=== PATIENT | male | born 1955 | race Caucasian/White ===

== ENCOUNTER 2017-07-24 07:30 | Inpatient (IN) | payer OTHER ==
--- NOTE | 2017-07-24 06:55 | PDHPUP ---
History & Physical Update H&P update statement: This history and physical update is based on an assessment of the patient which was completed after admission or registration (within 24 hours), but prior to the surgery/procedure. H&P update: H&P reviewed & patient examined, no change in patient's condition since H&P completed
[2017-07-24] MEDS ORDERED: ACETAMINOPHEN 500 MG TAB PO ONE (11:41)
[2017-07-24] MEDS ORDERED: ceFAZolin 2 GM/SWFI 2 GM/20 ML SYR IVP ONE (11:41)
[2017-07-24] MEDS ORDERED: GABAPENTIN 300 MG CAP PO ONE (11:41)
[2017-07-24] MEDS ORDERED: LR 1,000 ML IV ONE (11:42)
[2017-07-24] MEDS ORDERED: BUPIVACAINE 0.25% 30 ML SDV ONE (12:15)
[2017-07-24] MEDS ORDERED: THROMBIN (BOVINE) 20,000 UNIT VIAL TP ONE (12:15)
[2017-07-24] MEDS ORDERED: CHLORHEXIDINE GLUC HIBICLENS 118 ML BTL TP ONE (12:15)
[2017-07-24] MEDS ORDERED: BACITRACIN 50,000 UNITS/10 ML SYR IRR ONE (12:15)
[2017-07-24] MEDS ORDERED: EPINEPHrine 1 MG/ML INJ ONE (12:35)
[2017-07-24] MEDS ORDERED: oxyCODONE IR 5 MG TAB PO PRN (12:37)
[2017-07-24] MEDS ORDERED: MIDAZOLAM 2 MG/2 ML VIAL IVP ONE (12:37)
[2017-07-24] MEDS ORDERED: HYDROmorphONE/DILAUDID 2 MG/ML INJ IVP PRN (12:37)
[2017-07-24] MEDS ORDERED: DEXAMETHASONE 4 MG/ML VIAL IVP PRN (12:37)
[2017-07-24] MEDS ORDERED: ONDANSETRON 4 MG/2 ML VIAL IVP PRN (12:37)
[2017-07-24] MEDS ORDERED: NALOXONE HCL 0.4 MG/ML INJ IVP PRN ×2 (12:37→12:45)
[2017-07-24] MEDS ORDERED: HYDROCODONE/APAP 5/325 TAB PO PRN (12:37)
--- NOTE | 2017-07-24 12:39 | PDANEPAE ---
ANE History of Present Illness TLIF ANE Past Medical History - Cardiovascular History Hx Hypertension: No Hx Arrhythmias: No Hx Chest Pain: No Hx Coronary Artery / Peripheral Vascular Disease: No Hx CHF / Valvular Disease: No Hx Palpitations: No - Pulmonary History Hx COPD: No Hx Asthma/Reactive Airway Disease: No Hx Recent Upper Respiratory Infection: No Hx Oxygen in Use at Home: No Hx Sleep Apnea: Yes Sleep Apnea Screening Result - Last Documented: Positive - Neurologic History Hx Cerebrovascular Accident: No Hx Seizures: No Hx Dementia: No - Endocrine History Hx Diabetes: No - Renal History Hx Renal Disorders: Yes Renal History Comment: BPH - Liver History Hx Hepatic Disorders: No - Neurological & Psychiatric Hx Hx Neurological and Psychiatric Disorders: No - Cancer History Hx Cancer: No - Congenital Disorder History Hx Congenital Disorders: No - GI History Hx Gastrointestinal Disorders: Yes Gastrointestinal History Comment: GERD - Chronic Pain History Chronic Pain: Yes - Surgical History Prior Surgeries: sinus surgery 2010 ANE Review of Systems Review of Systems: - Exercise capacity METS (RN): 4 METS ANE Patient History - Allergies Allergies/Adverse Reactions: No Known Allergies Allergy (Verified 07/24/17 12:11) - Home Medications Home Medications: Alfuzosin HCl [Alfuzosin HCl ER] 10 mg PO HS 06/26/17 [Last Taken Unknown] Aspirin [Aspirin 81mg (*)] 81 mg PO DAILY 06/26/17 [Last Taken 07/14/17] Atorvastatin Calcium [Lipitor 20 mg (*)] 20 mg PO DAILY 06/26/17 [Last Taken Unknown] Cyclobenzaprine [Flexeril 10 MG (*)] 10 mg PO DAILY PRN 06/26/17 [Last Taken Unknown] Famotidine [Pepcid 20 MG (*)] 20 mg PO DAILY 06/26/17 [Last Taken Unknown] Herbals/Supplements -Info Only 1 ea PO DAILY 06/26/17 [Last Taken 07/14/17] Meloxicam 15 mg PO DAILY PRN 06/26/17 [Last Taken Unknown] Multivitamins [Multivitamin (*)] 1 each PO DAILY 06/26/17 [Last Taken 07/14/17] [place]-3 Fatty Acids [Fish Oil 1000 mg (*)] 1,000 mg PO DAILY 06/26/17 [Last Taken 07/14/17] - NPO status NPO Since - Liquids (Date): 04/04/18 NPO Since - Liquids (Time): 09:00 NPO Since - Solids (Date): 07/23/17 NPO Since - Solids (Time): 17:30 - Smoking Hx Smoking Status: Never smoked - Family Anes Hx Family Hx Anesthesia Complications: none ANE Labs/Vital Signs - Vital Signs Blood Pressure: 119/76 Heart Rate: 76 Respiratory Rate: 16 O2 Sat (%): 96 Height: 175.26 cm Weight: 68.039 kg ANE Physical Exam - Airway Neck exam: FROM Mallampati Score: Class 2 Mouth exam: normal dental/mouth exam - Pulmonary Pulmonary: clear to auscultation - Cardiovascular Cardiovascular: regular rate and rhythym - ASA Status ASA Status: I ANE Anesthesia Plan Anesthesia Plan: general endotracheal anesthesia Total IV Anesthesia: Yes
[2017-07-24] MEDS ORDERED: MIDAZOLAM 2 MG/2 ML VIAL ONE (12:41)
[2017-07-24] MEDS ORDERED: PROPOFOL/EMULSION 500 MG/50 ML BOTTLE IV ONE ×3 (12:44)
[2017-07-24] MEDS ORDERED: NS W/ 20 KCl/L 1,000 ML IV SCH (12:45)
[2017-07-24] MEDS ORDERED: ONDANSETRON DISINTEGRATING 4 MG TAB PO PRN (12:45)
[2017-07-24] MEDS ORDERED: POLYETHYLENE GLYCOL 3350 17 GM PKT PO PRN (12:45)
[2017-07-24] MEDS ORDERED: diphenhydrAMINE 25 MG CAP PO PRN (12:45)
[2017-07-24] MEDS ORDERED: BISACODYL 10 MG SUPP PR PRN (12:45)
[2017-07-24] MEDS ORDERED: morphINE PCA 30 MG/30 ML PCA IV PRN (12:45)
[2017-07-24] MEDS ORDERED: LACTULOSE 20 GM/30 ML UDCUP PO PRN (12:45)
[2017-07-24] MEDS ORDERED: REMIFENTANIL HCL 1 MG VIAL ONE ×3 (12:46)
[2017-07-24] MEDS ORDERED: DEXAMETHASONE 4 MG/ML VIAL ONE (12:54)
[2017-07-24] MEDS ORDERED: SUCCINYLCHOLINE CHLORIDE 200 MG/10 ML SYR IVP ONE (12:54)
[2017-07-24] MEDS ORDERED: ONDANSETRON 4 MG/2 ML VIAL ONE (12:54)
[2017-07-24] MEDS ORDERED: RANITIDINE 50 MG/2 ML VIAL ONE (12:54)
[2017-07-24] MEDS ORDERED: VASOPRESSIN 20 UNIT/ML VIAL ONE (13:20)
--- NOTE | 2017-07-24 13:30 | PDMN ---
Medical Necessity Medical necessity: S820 lumbar fusion 3 days [facility] INPT only: L4/5 TLIF
[2017-07-24] MEDS ORDERED: ceFAZolin 2 GM/DEXTROSE 100 ML IV SCH (14:00)
[2017-07-24] MEDS ORDERED: HYDROmorphONE/DILAUDID 2 MG/ML INJ ONE (16:03)
[2017-07-24] MEDS ORDERED: PROPOFOL 200 MG/20 ML VIAL ONE (16:29)
--- NOTE | 2017-07-24 17:12 | SOAPPROG ---
SOAP Progress Note Assessment/Plan: Post Op Visit: S: Awake and alert. NAD. Pt with expected lower back pain O: AFVSS/PERRLA/EOMI no droop CN 2-12 grossly intact +lt touch 5/5 BUE/BLE = CDI A/P: 62 yo male that is s/p TLIF at L4/5 -orders in place -call with any questions or concerns -pt understands and agrees -pt seen by Dr Mandujano as well 07/24/17 17:07 Objective: Vital Signs Temp Pulse Resp BP Pulse Ox 36.5 C 76 16 119/76 96 07/24/17 12:00 07/24/17 12:39 07/24/17 12:39 07/24/17 12:39 07/24/17 12:39 ICD10 Worksheet Patient Problems: Problems Problem Status Onset Arthrodesis status Acute Lumbar radicular pain Acute Lumbar stenosis Acute - ICD10 Problem Qualifiers (1) Lumbar stenosis (2) Lumbar radicular pain (3) Arthrodesis status
--- NOTE | 2017-07-24 17:14 | POSTANESTH ---
Post Anesthetic Evaluation Cardiovascular Status: Normal, Stable Respiratory Status: Similar to Pre-op Cond. Level of Consciousness/Mental Status: Mildly Sleepy, Arousable Pain Control: Adequate, Prn Tx Ordered Nausea/Vomiting Control: Adequate, Prn Tx Ordered
[2017-07-24] MEDS ORDERED: fentaNYL 100 MCG/2 ML INJ ONE (17:33)
[2017-07-24] MEDS: fentaNYL 100 MCG/2 ML INJ IVP PRN ×2 (17:36→17:44)
[2017-07-24] MEDS: ACETAMINOPHEN 500 MG TAB PO SCH ×2 (18:29→21:49)
--- NOTE | 2017-07-24 19:25 | GOP ---
[f rep st] OPERATIVE REPORT DATE OF OPERATION: 07/24/2017 SURGEON: Yazan Mandujano MD PROFESSIONAL [employer]LET[employer] COACH: Piyush Schwarz PA-C. PREOPERATIVE DIAGNOSIS: Lumbar spondylolisthesis L4-5, severe spinal stenosis L4-5, lumbar degenerative disk disease L4-5, multilevel lumbar spondylosis, left buttock pain and axial low back pain, left greater than right. POSTOPERATIVE DIAGNOSIS: Lumbar spondylolisthesis L4-5, severe spinal stenosis L4-5, lumbar degenerative disk disease L4-5, multilevel lumbar spondylosis, left buttock pain and axial low back pain, left greater than right. PROCEDURE PERFORMED: Posterolateral and intervertebral arthrodesis at L4-5 with bilateral decompressions in a left-sided approach to the L4-5 disk space ( [id number]); posterior nonsegmental instrumentation across a single interspace L4-5 ( [id number]); microscope; same-incision bone graft harvest; spinal stereotaxy; placement of biomechanical intervertebral device L4-5. FINDINGS: ESTIMATED BLOOD LOSS: 150 cc. INDICATIONS: The patient is a 62-year-old with terrible axial low back pain not responsive to conservative measures. MRI demonstrated multilevel lumbar spondylosis with degenerative changes throughout the lumbar spine. There was some right lateral recess stenosis at L5-S1. There was severe bilateral recess stenosis and spondylolisthesis and central stenosis at L4-5. There was disk degenerative disease and spondylosis and mild stenosis at L3-4, and there is a small foraminal disk bulge in the left L3-4 foramen. There are disk degenerative changes at L2-3, spondylosis and mild stenosis at that level. I suggested a single-level surgery. He understood that he had other problems in the lumbar spine that may eventually require surgery. He knew there was a chance of pseudoarthrosis and nonunion as well as the risk of continued symptoms. He knew there was risk of adjacent segment disease and the possible need for additional fusion surgery in the future. He wanted to proceed despite these risks. He knew there was risk of spinal fluid leak and nerve injury. DESCRIPTION OF PROCEDURE: The patient was taken to the operating room, placed in supine position. General anesthesia was begun. He was flipped prone onto the Frantz table. Care was taken to pad all points of contact. His back was sterilely prepped and draped in the usual fashion. A localizing x-ray was taken. We made a 4 cm incision above the L4-5 interspace. The subcutaneous tissue was dissected using Bovie cautery down through fascia, and a subperiosteal dissection was made down the lamina of L4-5. He had remarkably hypertrophic and enlarged L4-5 facet. When we dissected near them, there was pressurized synovium that came squirting out of his facet joint on his right side more than the left. We shot a localizing x-ray. We then denuded and removed the hypertrophic facets bilaterally at L4-5 and decorticated the transverse processes of L4-5 bilaterally. We then attached the Stealth reference frame to the spinous process of L4 and performed an O-arm spin. Using frameless Stealth stereotaxy, we placed pedicle screws bilaterally at L4 and L5. We used 35 mm screws at L5. We used 45 mm screws at L4. They all stimulated at 20 milliamperes or above. We performed an O-arm spin, and we looked at all of the screws. They were in excellent position. There was no violation of the L3-4 disk. We did 3D imaging on the screws, and there was no violation of the endplates at L3-4. The screws were fully contained within the pedicle. The tip of the right L5 screw was bicortical and breached ventral lateral portion of the L5 vertebral body only at its tip. These were all excellent screws with good bony purchase. We chose a 40 mm cielo and distracted between L4 and L5 and got partial reduction in the process of the spondylolisthesis at L4-5. We then removed all the soft tissue of the bone at L4-5 and harvested the inferior L4 spinous process for autologous grafting purposes. We drilled bilateral laminectomies of L4 and harvested this bone for autologous grafting purposes. We then introduced the operating microscope and opened the ligamentum flavum and performed radical bilateral decompression and bilateral medial facetectomy, decompressing the bilateral recesses at L4-5. We then undercut the superior articular process of L5 on the right-hand side and removed much of this where it encroached upon the exiting L4 nerve root at that level. We then completely removed the left L4-5 facet joint, and there was significant encroachment of the superior articulating process of L5 on the left side into the exiting L4 nerve root. The L5 nerve root had already been decompressed. We were very happy with the quality of our decompression. We swept the left L5 nerve root medially, incised the L4-5 disk, removed the disk and cartilaginous endplate. We did this bilaterally. We then roughened the subchondral bone to create arthrodesis there, and then we packed bone autograft and 0.7 mg of BMP into the disk space. This was followed by the expandable 8 x 28 mm device which we inserted under fluoroscopic guidance and expanded it in a torque limited fashion. A final x-ray was taken. The device was in excellent position. There was lordosis of the segment. We then decorticated all the remaining bone posterolaterally. We released the L4 cap screw and allowed a slightly increased lordosis compared to where we started, and then we final tightened these according to company specification. We placed bone autograft and BMP posterolaterally bilaterally followed by a subfascial drain. We then closed the incision in multiple layers using Vicryl sutures. A running PDS was placed in the skin. Steri-Strips were applied. The patient was reversed from anesthesia, extubated, and transferred to the recovery room in stable condition. There were no complications. LOCATION: [facility] COMPLICATIONS: None. INSTRUMENTATION USED: [employer] Solera 4.75 system with an 8 x 28 mm Elevate cage. We used 1.4 mg of bone morphogenic protein. 0.7 mg were placed into the disk space and 0.7 mg were used posterolaterally. /[id number]/MODL MTDD
[2017-07-24] MEDS: METHOCARBAMOL 750 MG TAB PO PRN (19:31)
[2017-07-24] MEDS: oxyCODONE IR 5 MG TAB PO PRN (19:31)
[2017-07-24] MEDS ORDERED: NON-FORMULARY NEW DRUG (Alfuzosin Hcl [Alfuzosin Hcl Er] 10 MG) PO SCH (21:00)
[2017-07-24] MEDS ORDERED: Alfuzosin Hcl [Alfuzosin Hcl Er] 10 MG PO SCH (21:00)
[2017-07-24] MEDS: ceFAZolin 2 GM/SWFI 2 GM/20 ML SYR IVP SCH (21:49)
[2017-07-24] MEDS: SENNOSIDES/DOCUSATE SODIUM TAB PO SCH (21:49)
[2017-07-24] MEDS: Alfuzosin Hcl [Alfuzosin Hcl Er] 10 MG PO SCH (21:50)
[2017-07-24] MEDS: morphINE SR 15 MG TAB PO SCH (21:50)
[2017-07-25] MEDS: oxyCODONE IR 5 MG TAB PO PRN ×5 (00:27→16:58)
[2017-07-25] MEDS: ACETAMINOPHEN 500 MG TAB PO SCH ×3 (05:34→20:12)
[2017-07-25] MEDS: ceFAZolin 2 GM/SWFI 2 GM/20 ML SYR IVP SCH (05:35)
--- NOTE | 2017-07-25 08:33 | NEUSURGPN ---
Assessment/Plan: A/P: 62 yo male that is s/p TLIF at L4/5 -PT/OT -Brace when OOB -Post op xrays pending -TEDs, SCDs, lovenox to begin 07/27 -Pain management -Dietrich is out -DC REESE drain today per Delbert -D/w Dr Mandujano -Call NS with any questions Subjective: Pt resting in bed, states pain is well managed Objective: AAOx3 NAD VSS MAEx4 Motor 5/5 BLE REESE drain productive +LT Urinary Catheter in Place: No Catheter Insertion Date: 07/24/17 - Physician Discussed Patient with : Delbert Neurosurgery Physical Exam - Vitals, I&O, Labs I and O 07/24/17 07/25/17 07/26/17 05:59 05:59 05:59 Intake Total 3250 Output Total 1270 1040 Balance 1979 -104 Weight 68.039 kg Intake: Oral (ml) 1300 IV Intake (ml) 1950 Output: Urine (ml) 400 1000 Catheter 400 1000 Estimated Blood Loss (ml) 400 REESE Drain Output (ml) 470 40 Back 470 40 Vital Signs Temp Pulse Resp BP Pulse Ox 37.2 C 74 14 103/60 93 07/25/17 08:00 07/25/17 08:00 07/25/17 08:00 07/25/17 08:00 07/25/17 08:00 ICD10 Worksheet Patient Problems: Problems Problem Status Onset Arthrodesis status Acute Lumbar radicular pain Acute Lumbar stenosis Acute
[2017-07-25] MEDS: METHOCARBAMOL 750 MG TAB PO PRN ×2 (08:58→16:34)
[2017-07-25] MEDS: morphINE SR 15 MG TAB PO SCH ×2 (08:58→20:13)
[2017-07-25] MEDS: SENNOSIDES/DOCUSATE SODIUM TAB PO SCH ×2 (08:58→20:13)
[2017-07-25] MEDS: FAMOTIDINE 20 MG TAB PO SCH (08:58)
[2017-07-25] MEDS: ATORVASTATIN CALCIUM 20 MG TAB PO SCH (09:04)
--- NOTE | 2017-07-25 15:58 | ASMTCMCOM ---
CM Note CM Note Notes: Pt s/p TLIF at L4/5. OT rec home, PT rec outpatient. Anticipate pt will d/c with support. CM available for changes/needs. Date Signed: 07/25/2017 03:57 PM Electronically Signed By:DONIS Banuelos
[2017-07-25] MEDS: Alfuzosin Hcl [Alfuzosin Hcl Er] 10 MG PO SCH (20:10)
[2017-07-25] MEDS: MAGNESIUM HYDROXIDE 30 ML UDCUP PO PRN (22:03)
[2017-07-26] MEDS: CYCLOBENZAPRINE 10 MG TAB PO PRN ×2 (00:38→10:56)
[2017-07-26] MEDS: oxyCODONE IR 5 MG TAB PO PRN (00:42)
[2017-07-26] MEDS: ACETAMINOPHEN 500 MG TAB PO SCH ×3 (05:31→21:08)
--- NOTE | 2017-07-26 07:47 | NEUSURGPN ---
Date of Surgery: 07/24/17 Post Op Day: 2 Assessment/Plan: Assessment: 62 yo male that is s/p TLIF at L4/5 POD#2 Plan: -PT/OT -Brace when OOB -Post op xrays stable -TEDs, SCDs, lovenox to begin 07/27 -Patient with abdominal distention last evening, abd xray shows ileus, enema and suppository given with small BM -Will change diet to clear liquids, continue IVF -Will give Relastor 12mg SCx1 -Will give Mag Citrate this am -Pain management, will hold ALL narcotics and use Tylenol only for pain management-patient is in agreement with this. Toradol 15mg x1 ordered if absolutely needed -Patient seen by Dr Mandujano as well -Please call neurosurgery with any questions/concerns Subjective: Sitting on edge of bed, expected incisional pain Objective: AAOx3 NAD VSS MAEx4 Motor 5/5 BLE Sensation intact to light touch BLE Dressing CDI Neuro Check Frequency: per routine Urinary Catheter in Place: No Catheter Insertion Date: 07/24/17 - Physician Discussed Patient with : Delbert Patient Seen by : Delbert Neurosurgery Physical Exam - Vitals, I&O, Labs I and O 07/25/17 07/26/17 07/27/17 05:59 05:59 05:59 Intake Total 3250 Output Total 1270 1255 Balance 1979 -125 Weight 68.039 kg Intake: Oral (ml) 1300 IV Intake (ml) 1950 Output: Urine (ml) 400 1000 Catheter 400 1000 Estimated Blood Loss (ml) 400 REESE Drain Output (ml) 470 255 Back 470 255 Other: Intake Quantity Yes Sufficient Number of Voids Toilet 2 Number of Stools Toilet 1 Vital Signs Temp Pulse Resp BP Pulse Ox 37.1 C 80 17 121/72 H 90 L 07/26/17 07:34 07/26/17 07:34 07/26/17 07:34 07/26/17 07:34 07/26/17 07:34 ICD10 Worksheet Patient Problems: Problems Problem Status Onset Arthrodesis status Acute Lumbar radicular pain Acute Lumbar stenosis Acute
[2017-07-26] MEDS ORDERED: MAGNESIUM CITRATE 300 ML BOTTLE PO ONE (07:54)
[2017-07-26] MEDS ORDERED: METHYLNALTREXONE BROMIDE 12 MG/0.6 ML INJ SC ONE (07:54)
[2017-07-26] MEDS ORDERED: KETOROLAC 15 MG/1 ML SDV IVP PRN (07:56)
[2017-07-26] MEDS ORDERED: D5W 1/2 NS 1,000 ML IV SCH (08:30)
[2017-07-26] MEDS: SENNOSIDES/DOCUSATE SODIUM TAB PO SCH ×2 (10:56→21:08)
[2017-07-26] MEDS: FAMOTIDINE 20 MG TAB PO SCH (10:56)
[2017-07-26] MEDS: ATORVASTATIN CALCIUM 20 MG TAB PO SCH (11:02)
[2017-07-26] MEDS: METHOCARBAMOL 750 MG TAB PO SCH ×3 (13:01→21:08)
[2017-07-26] MEDS ORDERED: CYCLOBENZAPRINE 10 MG TAB PO PRN (13:09)
--- NOTE | 2017-07-26 14:41 | SOAPPROG ---
SOAP Progress Note Assessment/Plan: Social visit Some postop constipation, secondary to narcotics, with probable mild to moderate Nina's. Now, after enema therapy, relistor, etc., doing much better. No further abdominal pain. Has had several liquidy b.m.s. No vomiting. Upon discharge, o.k. for him to have low-dose narcotic prn, if needed. However , at the same time, would have him use a bowel regime routinely, with a stool softener and miralax daily. Please call if I can be of help [phone]). 07/26/17 14:37 Objective: Vital Signs Temp Pulse Resp BP Pulse Ox 37.1 C 80 17 121/72 H 90 L 07/26/17 07:34 07/26/17 07:34 07/26/17 07:34 07/26/17 07:34 07/26/17 07:34 07/25/17 07/26/17 07/27/17 05:59 05:59 05:59 Intake Total 3250 Output Total 0086 1254 Balance 1979 -125 ICD10 Worksheet Patient Problems: Problems Problem Status Onset Arthrodesis status Acute Lumbar radicular pain Acute Lumbar stenosis Acute
[2017-07-26] MEDS: Alfuzosin Hcl [Alfuzosin Hcl Er] 10 MG PO SCH (21:08)
[2017-07-27] MEDS: METHOCARBAMOL 750 MG TAB PO SCH ×2 (05:53→11:11)
[2017-07-27] MEDS: ACETAMINOPHEN 500 MG TAB PO SCH ×2 (05:53→11:12)
[2017-07-27 07:37] VITALS: BP 110/78
[2017-07-27] MEDS: SENNOSIDES/DOCUSATE SODIUM TAB PO SCH (08:11)
[2017-07-27] MEDS: ATORVASTATIN CALCIUM 20 MG TAB PO SCH (08:13)
[2017-07-27] MEDS: FAMOTIDINE 20 MG TAB PO SCH (08:13)
[2017-07-27] MEDS: MAGNESIUM HYDROXIDE 30 ML UDCUP PO PRN (08:20)
[2017-07-27] MEDS ORDERED: ENOXAPARIN 40 MG/0.4 ML SYR SC SCH (09:00)
--- NOTE | 2017-07-27 10:28 | NEUSURGPN ---
Date of Surgery: 07/24/17 Post Op Day: 3 Assessment/Plan: Assessment: 62 yo male that is s/p TLIF at L4/5 POD#3 Plan: -PT/OT -Brace when OOB -Post op xrays stable -TEDs, SCDs -Patient with abdominal distention last 4/5, abd xray showed ileus, enema and suppository given with small BM. Now frequent stools following Relastor. We appreciate the recommendations given by GI for home. -Pain management:pain currently controlled with robaxin and Tylenol, ok to give low dose narcotics at home per GI -Patient will dc home today -Patient discussed with Dr Mandujano -Please call neurosurgery with any questions/concerns Subjective: Doing better today, expected incisional pain Objective: AxO x3 PERRLA 5/ BUE, BLE Sensation intact to light touch BLE Dressing CDI-removed, steri strips in place Neuro Check Frequency: per routine Urinary Catheter in Place: No Catheter Insertion Date: 07/24/17 - Physician Discussed Patient with : Delbert Neurosurgery Physical Exam - Vitals, I&O, Labs I and O 07/26/17 07/27/17 07/28/17 05:59 05:59 05:59 Intake Total 850 Output Total 1255 Balance -1255 850 Intake: IV Infused (ml) 850 D5w 1/2 Ns 1,000 ml @ 100 850 mls/hr IV CONT SUHA Rx#: [id number] Output: Urine (ml) 1000 Catheter 1000 REESE Drain Output (ml) 255 Back 255 Other: Intake Quantity Yes Yes Sufficient Number of Voids Toilet 2 2 Number of Stools Toilet 1 Vital Signs Temp Pulse Resp BP Pulse Ox 36.9 C 86 15 110/78 90 L 07/27/17 07:37 07/27/17 07:37 07/27/17 07:37 07/27/17 07:37 07/27/17 07:37 ICD10 Worksheet Patient Problems: Problems Problem Status Onset Arthrodesis status Acute Lumbar radicular pain Acute Lumbar stenosis Acute
--- NOTE | 2017-08-08 14:36 | GDS ---
[f rep st] DISCHARGE SUMMARY PRIMARY DIAGNOSES: Lumbar spondylolisthesis L4-5. Severe spinal stenosis L4-5. Lumbar degenerative disk disease L4-5. Multilevel spondylosis. Left buttock pain and axial low back pain, left greater than right. OPERATION/PROCEDURE: A posterolateral intervertebral arthrodesis at L4-5 with bilateral decompressio ns and left-sided approach to the L4-5 disk space, posterior nonsegmental instrumentation across the single interspace at L4-5, same incision, bone graft harvest and placement of biomechanical intervert ebral device between the L4-5 space as well. This procedure occurred with Dr. Jose Juan Mandujano on 07/25/19 18 at [facility]. HOSPITAL COURSE: The patient is a 62-year-old male who is otherwise quite active. He presented to o ur office with terrible axial low back pain that was nonresponsive to conservative measures. An MRI demonstrated multilevel lumbar spondylosis and degenerative changes throughout the lumbar spine. The re was some right lateral recess stenosis at L5, but the most significant level was at L4-5, where he had severe bilateral recess stenosis and a spondy at this level. There was severe central stenosis as well. Recommendation for decompression and fusion at this level, due to the fact we believe that this was the symptomatic level, was given to the patient and he understood these risks. He tolerated the procedure well and he was admitted postoperatively. On postoperative day number #1, 07/25/2017, he underwent x-rays of lumbar spine which showed new well -seated posterior fusion construct from L4-L5. Patient did have some difficulty after surgery with m oving his bowels, and abdominal x-ray obtained on 07/25/2017, which showed mild constipation with sup erimposed ileus. No evidence of small bowel obstruction was given. Dr. George with a gastroenterology was involved in his care. He was put on a bowel protocol. He was given a dose of Relistor per our recommendations and this helped. He progressed along and was able to move his bowels. His pain was adequately controlled with oral pain medicine. He was fit for an LSO brace that he will wear wheneve r out of bed, and he was discharged after criteria was met. CONSULTS: GI. COMPLICATIONS: Ileus that resolved. DISCHARGE CONDITION: Stable and improved. DISCHARGE INSTRUCTIONS: Standard discharge instructions given to patient following instrumented lumb ar fusion. We talked about worsening symptoms, new pain, weakness, numbness, tingling, loss of bowel or bladder control, problems with gait or balance. Patient will follow up with us in 2 weeks for a postoperative check, and then likely at 2 months with x-rays, 3-6 months, 9 months to a year, year an d a half or 2 years when clinically appropriate with x-rays. All questions and concerns were anjana cyr. Patient understands and agrees. /[id number]/MODL
== END 2017-07-27 11:23 | disposition home or self-care (01) | DRG 460 ==
LOC: F3N 11:30
PROVIDERS: ADMIT Neurological Surgery; ATTEND Neurological Surgery
DX: M51.36 Other intervertebral disc degeneration, lumbar region (principal); M43.16 Spondylolisthesis, lumbar region; M47.816 Spondylosis without myelopathy or radiculopathy, lumbar region; M48.062 Spinal stenosis, lumbar region with neurogenic claudication; K59.03 Drug induced constipation; T40.605A Adverse effect of unspecified narcotics, initial encounter; K56.7 Ileus, unspecified
CPT/HCPCS: 97116-GP; 97161-GP; 97165-GO; 97535-GO; C1713; J0171; J0330; J0690; J1100; J1170; J1650; J2212; J2250; J2405; J2704; J2780; J3010